=== PATIENT | female | born 1970 | race Caucasian/White ===

== ENCOUNTER 2017-01-09 16:39 | Emergency (ER) | payer BC | END 2017-01-09 17:55 | disposition home or self-care (01) | LOC: ER1 16:39 | DX: S00.83XA Contusion of other part of head, initial encounter (principal); V49.40XA Driver injured in collision with unspecified motor vehicles in traffic accident, initial encounter; Y93.89 Activity, other specified; Y92.410 Unspecified street and highway as the place of occurrence of the external cause; Z88.0 Allergy status to penicillin; Z88.1 Allergy status to other antibiotic agents; Z88.2 Allergy status to sulfonamides | CPT/HCPCS: 96372; 99283; J1885 ==

== ENCOUNTER → 2021-01-24 | Outpatient (CLI) | payer OTHER ==
[~2021-01-24] MED LIST: CLEOCIN HCL300 MG PO
== END ==
LOC: HEART CORB 09:08
DX: R07.2 Precordial pain (principal); R06.02 Shortness of breath; I10 Essential (primary) hypertension; R93.1 Abnormal findings on diagnostic imaging of heart and coronary circulation
CPT/HCPCS: 78452; 93306; A9502; J2785

== ENCOUNTER → 2021-01-25 | Outpatient (CLI) | payer OTHER | LOC: SLEEP 15:04 | DX: G47.30 Sleep apnea, unspecified (principal) | CPT/HCPCS: 95810 ==

== ENCOUNTER → 2021-01-26 | Outpatient (CLI) | payer OTHER | LOC: SLEEP 08:00 | DX: G47.30 Sleep apnea, unspecified (principal) | CPT/HCPCS: 95805 ==

== ENCOUNTER → 2022-02-02 | Outpatient (CLI) | payer OTHER | LOC: HEART CORB 10:16 | DX: R55 Syncope and collapse (principal) ==